=== PATIENT | female | born 1950 | race Asian ===

== ENCOUNTER → 2016-11-11 | Outpatient (CLI) | payer MEDICARE ==
[~2016-11-11] MED LIST: ACET-2902 PO; AMLO-512 PO; ASPI-556 PO; BISA10SU8 PR; CEFT1PIG2 IV; CLON.1 PO; DSS100 PO; GLIP10 PO; HEP5KI SQ; HYDR-3965 PO; HYDR25TA PO; INSNOV SQ; LISI40TA4 PO; MOM30 PO; PANT40TA PO; SIMV-260 PO; ZOLP5 PO
== END | disposition home or self-care (01) ==
LOC: RADPV 11:09
PROVIDERS: ATTEND Hospitalist
DX: N28.1 Cyst of kidney, acquired (principal)
CPT/HCPCS: 76770

== ENCOUNTER 2017-08-16 01:22 | Emergency (ER) | payer MEDICARE, MEDICAID ==
[~2017-08-16] VITALS: Ht 149.9 cm; Wt 59.1 kg
[~2017-08-16 01:22] MED LIST changes: +CLON-570 PO; -CLON.1 PO
[2017-08-16 01:37] LABS: GLUCOSE,POINT OF CARE 355 MG/DL (70-110)
[2017-08-16] MEDS ORDERED: CARV25 PO (01:39)
[2017-08-16] MEDS ORDERED: ATOR40TA28 PO (01:39)
[2017-08-16 02:50] VITALS: BP 182/86
== END 2017-08-16 02:56 | disposition home or self-care (01) ==
LOC: EMS 01:23
DX: K59.00 Constipation, unspecified (principal); I10 Essential (primary) hypertension; E11.9 Type 2 diabetes mellitus without complications
CPT/HCPCS: 99283

== ENCOUNTER → 2018-06-27 | Outpatient (CLI) | payer MEDICARE, MEDICAID ==
[~2018-06-27] MED LIST changes: -ACET-2902 PO; +ATOR40TA28 PO; +CARV25 PO; -CEFT1PIG2 IV; -HEP5KI SQ; -HYDR-3965 PO; -HYDR25TA PO; -PANT40TA PO; -SIMV-260 PO
== END | disposition home or self-care (01) ==
LOC: RADPV 09:57
PROVIDERS: ATTEND Hospitalist
DX: N28.1 Cyst of kidney, acquired (principal)
CPT/HCPCS: 76770